=== PATIENT | female | born 2005 | race Caucasian/White ===

== ENCOUNTER 2025-09-17 22:12 | Emergency (ER) | payer BC, SELFPAY ==
[2025-09-17 22:12] VITALS: BMI 20.3
[2025-09-17 22:22] VITALS: BP 139/95; PULSE 111; RESP 18; TEMP 36.7; O2SAT 96
--- NOTE | 2025-09-17 22:30 | EDNOTE_ITS ---
ED Dental RME/HPI General Chief complaint: Dental/Oral/Throat Stated complaint: THROAT PAIN Time Seen by Provider: 09/17/25 22:22 Source: patient, RN notes reviewed and old records reviewed Arrival date/time: 09/17/25 22:12 Mode of arrival: ambulatory Limitations: no limitations RME / HPI RME / HPI Narrative: 20yof presents to ED for sore throat that started today. No sick contacts or known strep exposures. No fever, congestion, cough, shortness of breath, nausea/vomiting, neck pain or headache reported. 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 Previous Rx's ?Medication ?Instructions ?Recorded benzocaine 15 mg-menthol 3.6 mg 1 manuel PO Q4H PRN throa t pain #16 ea 09/17/25 lozenges (Cepacol Sore Throat (benzocaine-menthol)) ibuprofen 600 mg tablet 600 mg PO Q6H PRN fever or p ain 09/17/25 #20 tabs Allergies Allergy/AdvReac Type Severity Reaction Status Date / Time NKA* Allergy Uncoded 09/17/25 22:16 Review of Systems Review of Systems Systems Reviewed: All systems reviewed, normal except as documented Constitutional Constitutional: Denies chills, Denies fever(s) and Denies headache(s) ENT Ears, Nose, Mouth, and Throat: Denies headache(s), Denies nasal congestion, Denies neck pain and Reports sore throat Cardiovascular Cardiovascular: Denies dyspnea Respiratory Respiratory: Denies cough and Denies dyspnea Gastrointestinal Gastrointestinal: Denies nausea and Denies vomiting Musculoskeletal Musculoskeletal: Denies neck pain Neurologic Neurologic: Denies headache(s) Past Medical History Surgical History OTHER SURGICAL HX: Denies past surgical history Social History SMOKING STATUS: Current every day smoker (Vapes) SUBSTANCE USE: marijuana ALCOHOL: Never Past Medical History Comments PMH COMMENT: Denies past medical history ED Exam General Limitations: Present no limitations General appearance: Present alert and in no apparent distress Head Head exam: Present atraumatic and normocephalic Eye Eye exam: Present normal appearance, PERRL and EOMI ENT ENT exam: Present mucous membranes moist, TM's normal bilaterally and other (Mild pharyngeal erythema. No tonsillar swelling or exudate, uvula midline) Neck Neck exam: Present normal inspection and full ROM; Absent meningismus or lymphadenopathy Chest Chest inspection: Present normal inspection and symmetric chest wall rise Respiratory Respiratory exam: Present normal lung sounds bilaterally; Absent respiratory distress, wheezes or stridor Cardiovascular Cardiovascular exam: Present normal rhythm and tachycardia (Mild) Extremities Exam Extremities exam: Present normal inspection and full ROM Neurological Exam Neurological exam: Present alert and oriented X3 Psychiatric Psychiatric exam: Present normal affect and normal mood Skin Skin exam: Present warm, dry, intact and normal color Course Quality Measures none Orders Category Date Time Status Strep A Rapid Stat Lab 09/17/25 22:57 Completed Ibuprofen Tab [Motrin Tab] Med 09/17/25 22:29 Discontinued 600 mg PO X1 ONE Vital Signs Vital signs: Vital Signs Temperature 98.1 F 09/17/25 22:22 Pulse Rate 111 H 09/17/25 22:22 Respiratory Rate 18 09/17/25 22:22 Blood Pressure 139/95 H 09/17/25 22:22 Pulse Oximetry (%) 96 09/17/25 22:22 Oxygen Delivery Method Room Air 09/17/25 22:22 Dental / Oral MDM Narrative MDM Narrative:: 20yof presents to ED for sore throat that started today. No sick contacts or known strep exposures. No fever, congestion, cough, shortness of breath, nausea/vomiting, neck pain or headache reported. 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 Patient is well-appearing, afebrile, vitals are stable. Suspect viral etiology of symptoms. Encouraged rest, fluids, symptomatic treatment, fever management prn. Stable for discharge, RTED precautions given. Patient data External records reviewed:: None (No prior visits) Clinical information provided by:: patient Social determinants that could affect healthcare access:: other (specify) (Poor access to healthcare, unemployed) Patient has the following chronic illnesses:: None How is presenting disease/condition affected by chronic disease/condition?: no chronic disease Evaluation data The following diagnostics were reviewed and interpreted by me:: lab results Lab and/or radiology exams considered but not ordered:: COVID/flu: Results would not affect treatment plan Interpretation Summary: Negative strep Medications / Prescriptions Medications or Prescriptions considered but not ordered:: No antibiotics recommended at this time Medication administrations:: Medication Administration History Discontinued Medications Ibuprofen (Ibuprofen Tab 600 Mg Tablet) 600 mg PO X1 ONE Stop: 09/17/25 22:30 Last Admin: 09/17/25 22:49 Dose: 600 mg Documented By: BD Above medication administered in ED Consultations Consultation(s) initiated? (list below): No Diagnosis Dental Differential Diagnosis: other (Tonsillitis, pharyngitis, viral illness, URI, COVID, flu) Most likely diagnosis given after review of the tests above:: Pharyngitis Admission Indicated Admission indicated?: not indicated Admission Request Was there a request for admission?: No Disposition Plan Disposition Plan: Discharge Discharge Attestation Discharge Attestation: The patient and all family members were given an opportunity to ask questions and understood the discharge instructions. Discharge instructions specifically effects, indications for sooner follow up or return to the emergency department, and the expected course of current diagnosis. Patient condition: Stable Discharge Plan Plan Patient Disposition: HOME (Self Care) Patient condition on transfer: Stable Prescriptions/Referrals Prescriptions/Med Rec: New ibuprofen 600 mg tablet 600 mg PO Q6H PRN (Reason: fever or pain) Qty: 20 0RF Cepacol Sore Throat (doreen-men) 15-3.6 mg lozenge 1 manuel PO Q4H PRN (Reason: throat pain) Qty: 16 0RF Referrals: Lotus Clements MD [Primary Care Provider, Nephrology] - In 1 week Problem List Clinical Impression: Viral pharyngitis Patient/Caregiver Discharge Instructions Education Materials: Self-Care for Sore Throats Additional Instructions: ibuprofen, Tylenol or Cepacol lozenges can be taken for pain. Follow-up with your PCP as needed. Print Language: Fijian Stand Alone Forms: Joselin Award Info., Patient Portal Info Letter MARTÍN/AUROR[employer] Supervising Physician MARTÍN/AUR[employer]A Supervising Physician: Namita
[2025-09-17] MEDS: IBUPROFEN TAB 600 MG TABLET PO (22:49)
[2025-09-17 23:24] LABS: Strep A Rapid Negative (Negative)
== END 2025-09-17 23:48 | disposition home or self-care (01) ==
PROVIDERS: Physician Assistant; Emergency Provider Emergency Medicine; PCP Internal Medicine
DX: J02.8 Acute pharyngitis due to other specified organisms (principal)
CPT/HCPCS: 87651; 99282; A9270